=== PATIENT | female | born 1940 | race Asian ===

== ENCOUNTER 2024-02-24 10:23 | Day surgery (SDC) | payer BC ==
[~2024-02-24] VITALS: Ht 149.9 cm; Wt 62.6 kg
[2024-02-24] MEDS ORDERED: MIDAZOLAM HCL 5 MG/5 ML VIAL ONE (11:39)
[2024-02-24] MEDS ORDERED: fentaNYL CITRATE/PF 100 MCG/2 ML AMP ONE (11:39)
[2024-02-24 12:37] VITALS: O2SAT 99
[2024-02-24 14:13] VITALS: BP_SYST 110; PULSE 65; RESP 18
== END 2024-02-24 13:50 | disposition home or self-care (01) ==
LOC: SDS 10:23 → SMU 10:25 → SDS 13:50
PROVIDERS: ATTEND Surgery
DX: K64.8 Other hemorrhoids (principal); D12.0 Benign neoplasm of cecum; K63.89 Other specified diseases of intestine; I10 Essential (primary) hypertension; E78.5 Hyperlipidemia, unspecified; K21.9 Gastro-esophageal reflux disease without esophagitis; M19.90 Unspecified osteoarthritis, unspecified site; Z88.6 Allergy status to analgesic agent; Z90.710 Acquired absence of both cervix and uterus
CPT/HCPCS: 45380; 99152; 88305; G0378; J2250; J3010